=== PATIENT | male | born 1965 | race Caucasian/White ===

== ENCOUNTER 2020-01-18 05:13 | Inpatient (IN) | payer MEDICARE, MEDICAID ==
[~2020-01-18] VITALS: Ht 172.7 cm; Wt 83.6 kg
[~2020-01-18 05:13] MED LIST: ASPI-1264 PO; LISI-600 PO; OMEP20CA15 PO; advair
[2020-01-18 05:46] LABS: BASOPHILS % (AUTO) 0.5 % (0-1); EOSINOPHILS # (AUTO) 0.1 X10'3 (0-0.9); EOSINOPHILS % (AUTO) 1.7 % (0-6); HEMATOCRIT 42.9 % (42.0-52.0); HEMOGLOBIN 14.4 g/dl (14.0-17.9); LYMPHOCYTES # (AUTO) 1.3 X10'3 (1.1-4.8); LYMPHOCYTES % (AUTO) 17.1 % (21-51); MEAN CORPUSCULAR HEMOGLOBIN 29.4 PG (27.0-31.0); MEAN CORPUSCULAR HGB CONC 33.5 g/dL (33.0-36.5); MEAN CORPUSCULAR VOLUME 87.7 FL (78-98); MEAN PLATELET VOLUME 10.2 FL (7.4-10.4); MONOCYTES # (AUTO) 0.6 X10'3 (0-0.9); MONOCYTES % (AUTO) 8.3 % (2-12); NEUTROPHILS # (AUTO) 5.6 X10'3 (1.8-7.7); NEUTROPHILS % (AUTO) 72.4 % (42-75); PLATELET COUNT 219 X10'3 (140-440); RED BLOOD COUNT 4.89 X10'6 (4.70-6.10); RED CELL DISTRIBUTION WIDTH 13.1 % (11.5-14.5); WHITE BLOOD COUNT 7.8 X10'3 (4.5-11.0)
[2020-01-18] MEDS ORDERED: iohexol 300mg/ml 100ml inj. ONE (05:49)
[2020-01-18 05:52] LABS: ALANINE AMINOTRANSFERASE 27 U/L (12-78); ALBUMIN 4.4 G/DL (3.4-5.0); ALBUMIN/GLOBULIN RATIO 1.1 (1.1-1.5); ALKALINE PHOSPHATASE 75 IU/L (46-116); ANION GAP 12 (8-16); ASPARTATE AMINO TRANSFERASE 15 U/L (10-37); BILIRUBIN,TOTAL 0.6 MG/DL (0.1-1.0); BLOOD UREA NITROGEN 13 MG/DL (7-18); BUN/CREATININE RATIO 10.9 (5.4-32.0); CALCIUM 8.9 MG/DL (8.5-10.1); CHLORIDE 102 MMOL/L (99-107); CREATININE 1.19 MG/DL (0.60-1.10); GLUCOSE 145 MG/DL (70-104); POTASSIUM 3.6 MMOL/L (3.5-5.1); SODIUM 139 MMOL/L (135-145); TOTAL CARBON DIOXIDE 24.8 MMOL/L (24-32); TOTAL PROTEIN 8.3 G/DL (6.4-8.2); eGFR 64 ML/MIN
[2020-01-18 06:06] LABS: LIPASE 2884 U/L (73-393)
[2020-01-18] MEDS ORDERED: normal saline 1000ML IV soln IVB ONE (07:10)
[2020-01-18 07:18] LABS: CLARITY,URINE CLEAR (Clear); COLOR,URINE YELLOW (Yellow); GLUCOSE, URINE NEGATIVE (Neg); KETONES,URINE 15 mg/dl (Neg); LEUKOCYTE ESTERASE ,URINE NEGATIVE (Neg); NITRITES, URINE NEGATIVE (Neg); OCCULT BLOOD,URINE NEGATIVE (Neg); PROTEIN,URINE NEGATIVE (Neg); UROBILINOGEN,URINE 0.2 E.U/dL (0.2-1.0)
[2020-01-18 07:20] LABS: UA COLLECTION TYPE CLN CATCH MIDSTREAM
--- NOTE | 2020-01-18 07:48 | NUR ---
U/S DONE AND IVF HUNG. PT RESTING IN POC.
--- NOTE | 2020-01-18 08:33 | NUR ---
DR. DYKES IN TO SEE PT
[2020-01-18] MEDS ORDERED: HYDROcodone/acetaminophen 5mg/325mg tablet PO PRN (08:55)
[2020-01-18] MEDS ORDERED: magnesium Cl slow-release 64mg tablet PO PRN (08:55)
[2020-01-18] MEDS ORDERED: morphine 2 MG/ML inj. syringe IV PRN ×2 (08:55)
[2020-01-18] MEDS ORDERED: bisacodyl 10mg suppository rectal RC PRN (08:55)
[2020-01-18] MEDS ORDERED: magnesium 4gm in 100ml NS 100 ML IV PRN (08:55)
[2020-01-18] MEDS ORDERED: magnesium hydroxide 30ml (MOM) UD suspension PO PRN (08:55)
[2020-01-18] MEDS ORDERED: ondansetron/PF 4mg/2ml inj IV PRN (08:55)
[2020-01-18] MEDS ORDERED: potassium Cl 20 mEq SR tablet PO PRN ×2 (08:55)
[2020-01-18] MEDS ORDERED: magnesium 2GM in 50ml NS 50 ML IV PRN (08:55)
[2020-01-18] MEDS ORDERED: potassium CL 10mEq/100ml bag 100 ML IV PRN ×2 (08:55)
[2020-01-18] MEDS ORDERED: acetaminophen 325mg tablet PO PRN ×2 (08:55)
[2020-01-18] MEDS ORDERED: HYDROcodone/acetaminophen 10/325mg tab PO PRN (08:55)
[2020-01-18] MEDS: normal saline 1000ml 1,000 ML IV SCH ×3 (09:47→21:38)
[2020-01-18] MEDS: pantoprazole 40mg Tablet.DR PO SCH ×2 (09:47→19:38)
[2020-01-18 11:20] VITALS: BP 101/77
[2020-01-18] MEDS ORDERED: HYDR12.55 PO (11:45)
[2020-01-18] MEDS ORDERED: ASPI-101 PO (12:41)
[2020-01-18] MEDS: metroNIDAZOLE-Flagyl 500mg/NS 100 ML IV SCH ×2 (16:08→23:57)
[2020-01-18 18:00] VITALS: BP 114/67
--- NOTE | 2020-01-18 18:23 | NUR ---
Problems reprioritized. Patient report given, questions answered & plan of care reviewed with Prudence RN.
--- NOTE | 2020-01-18 18:48 | NUR ---
Patient in room [facility]. I have received report from DEAN MILLS and had the opportunity to ask questions and assume patient care.Patient in the room resting and denies having pain.
[2020-01-18] MEDS: heparin, porcine 5000 units/ml vial SQ SCH (19:37)
[2020-01-18] MEDS ORDERED: K and/or MAG REPLACEMENT MC SCH (20:00)
[2020-01-18] MEDS ORDERED: ciprofloxacin lact 400MG/200ML 200 ML IV SCH (20:00)
[2020-01-18] MEDS ORDERED: temazepam 15mg capsule PO PRN (21:00)
[2020-01-19] VITALS: BP 122/66
--- NOTE | 2020-01-19 06:21 | NUR ---
Problems reprioritized. Patient report given, questions answered & plan of care reviewed with DEAN MILLS.
--- NOTE | 2020-01-19 06:28 | NUR ---
Patient in room [facility]. I have received report from Melinda MILLS and had the opportunity to ask questions and assume patient care.
[2020-01-19 06:53] LABS: ALANINE AMINOTRANSFERASE 22 U/L (12-78); ALBUMIN 3.2 G/DL (3.4-5.0); ALKALINE PHOSPHATASE 54 IU/L (46-116); ANION GAP 10 (8-16); ASPARTATE AMINO TRANSFERASE 11 U/L (10-37); BILIRUBIN,TOTAL 0.4 MG/DL (0.1-1.0); BLOOD UREA NITROGEN 11 MG/DL (7-18); CALCIUM 8.2 MG/DL (8.5-10.1); CHLORIDE 108 MMOL/L (99-107); CHOL/HDL RATIO 4.5 (0.00-4.99); CHOLESTEROL 135 MG/DL (0-200); CREATININE 0.92 MG/DL (0.60-1.10); GLUCOSE 91 MG/DL (70-104); HDL CHOLESTEROL 30 MG/DL (35-60); LDL CHOLESTEROL 89 MG/DL (50-100); LIPASE 167 U/L (73-393); MAGNESIUM 2.3 MG/DL (1.5-2.4); POTASSIUM 3.9 MMOL/L (3.5-5.1); SODIUM 142 MMOL/L (135-145); TOTAL CARBON DIOXIDE 24.3 MMOL/L (24-32); TOTAL PROTEIN 6.3 G/DL (6.4-8.2); TRIGLYCERIDES 128 MG/DL (20-135); eGFR 86 ML/MIN
[2020-01-19 06:54] LABS: BASOPHILS % (AUTO) 0.7 % (0-1); EOSINOPHILS # (AUTO) 0.2 X10'3 (0-0.9); EOSINOPHILS % (AUTO) 2.9 % (0-6); HEMATOCRIT 36.4 % (42.0-52.0); HEMOGLOBIN 12.2 g/dl (14.0-17.9); LYMPHOCYTES # (AUTO) 1.3 X10'3 (1.1-4.8); LYMPHOCYTES % (AUTO) 22.2 % (21-51); MEAN CORPUSCULAR HEMOGLOBIN 29.4 PG (27.0-31.0); MEAN CORPUSCULAR HGB CONC 33.5 g/dL (33.0-36.5); MEAN CORPUSCULAR VOLUME 87.7 FL (78-98); MEAN PLATELET VOLUME 9.8 FL (7.4-10.4); MONOCYTES # (AUTO) 0.5 X10'3 (0-0.9); MONOCYTES % (AUTO) 8.3 % (2-12); NEUTROPHILS # (AUTO) 3.7 X10'3 (1.8-7.7); NEUTROPHILS % (AUTO) 65.9 % (42-75); PLATELET COUNT 196 X10'3 (140-440); RED BLOOD COUNT 4.16 X10'6 (4.70-6.10); RED CELL DISTRIBUTION WIDTH 13.1 % (11.5-14.5); WHITE BLOOD COUNT 5.7 X10'3 (4.5-11.0)
[2020-01-19 07:00] VITALS: BP 107/59
[2020-01-19] MEDS: pantoprazole 40mg Tablet.DR PO SCH (07:44)
[2020-01-19] MEDS: metroNIDAZOLE-Flagyl 500mg/NS 100 ML IV SCH (07:44)
[2020-01-19] MEDS ORDERED: lisinopril 20mg tablet PO SCH (08:00)
[2020-01-19] MEDS: heparin, porcine 5000 units/ml vial SQ SCH (08:00)
[2020-01-19] MEDS ORDERED: HYDROchlorothiazide 12.5mg capsule PO SCH (08:00)
[2020-01-19] MEDS ORDERED: METR-159 PO (08:36)
[2020-01-19] MEDS ORDERED: OMEP20CA15 PO (08:36)
--- NOTE | 2020-01-19 09:15 | NUR ---
Patient tolerated the full liquid breakfast. Will discharge the patient
[2020-01-19 09:23] VITALS: BP_SYST 107
--- NOTE | 2020-01-19 09:30 | NUR ---
Discharge instructions given to patient. Patient verbalized understanding of all instructions made. Peripheral IV removed, tip intact. New prescription will call in to [facility] pharmacy in [place] once they are open (open at 10:00am today). Instructed patient to ensure he has all belongings with him before leaving the hospital. Patient stated he will be driving himself home. There were no narcotic/sedative given.
--- NOTE | 2020-01-19 10:27 | NUR ---
New prescription called in to [facility] pharmacy in [place]
--- NOTE | 2020-01-21 16:07 | NUR ---
Case Management DC follow up: spoke to pt via telephone. s/p: pancreatitis, enteritis. Reports:"doing okay", has resumed regular diet, asymptomatic. Denies: acute/continuous CP, emergent SOB, resp distress, N/V, ESTES, blurry vision, vertigo, syncope episodes, weakness,emergent general pain, abd tenderness/distension, bladder pain, dysuria, polyuria, hematuria, retention, constipation, diarrhea, fever, unexplained bleeding, bruising. Verbalizes understanding of s/s that warrant 9-11/ER visit for further evaluation. Verbalizes understanding of new Rx: Flagyl, omeprazole, and why prescribed, resumes current Rx, taking as ordered, no ase r/t polypharmacy. Acknowledges need to schedule/keep follow up appts w/ PCP/Chen COTTON/young. Verbalizes compliance w/DC aftercare. Needs met, questions answered at DC, no further questions or concerns at this time.
== END 2020-01-19 09:31 | disposition home or self-care (01) | DRG 391 ==
LOC: ER 05:14 → ED HOLD 08:52 → EDBEDREQ 09:55 → SUR 3N 11:08
PROVIDERS: ADMIT Internal Medicine; ATTEND Internal Medicine
PROC: BW211ZZ Computerized Tomography (CT Scan) of Abdomen and Pelvis using Low Osmolar Contrast (ICD-10-PCS; principal; 2020-01-18)
DX: K52.9 Noninfective gastroenteritis and colitis, unspecified (principal); K85.90 Acute pancreatitis without necrosis or infection, unspecified; I10 Essential (primary) hypertension; K21.9 Gastro-esophageal reflux disease without esophagitis; K59.00 Constipation, unspecified; N28.9 Disorder of kidney and ureter, unspecified; F17.220 Nicotine dependence, chewing tobacco, uncomplicated; Z71.6 Tobacco abuse counseling
CPT/HCPCS: 36415; 71045; 74177; 76700; 80053; 80061; 81003; 83605; 83690; 83735; 84484; 85025; 87040; 87081; 96360; 97161; 97530; 99285; G0378; J0744; J1644; J3490; J7030; Q9967

== ENCOUNTER 2024-01-08 09:16 | Outpatient (CLI) | payer MEDICARE, MEDICAID ==
[~2024-01-08 09:16] MED LIST changes: -ASPI-1264 PO; +HYDR12.55 PO; -LISI-600 PO; +LISI20TA28 PO; -advair
== END 2024-01-08 23:59 | disposition home or self-care (01) ==
LOC: RAD 09:16
PROVIDERS: ATTEND Physician Assistant
DX: Z12.2 Encounter for screening for malignant neoplasm of respiratory organs (principal); I25.10 Atherosclerotic heart disease of native coronary artery without angina pectoris; M47.816 Spondylosis without myelopathy or radiculopathy, lumbar region; Z87.891 Personal history of nicotine dependence
CPT/HCPCS: 71271